=== PATIENT | female | born 1950 | race Caucasian/White ===

== ENCOUNTER → 2016-09-17 | Day surgery (SDC) | payer MEDICARE ==
[~2016-09-17] VITALS: Ht 157.5 cm; Wt 55.0 kg
[~2016-09-17] MED LIST: 0.9% Sodium Chloride 1,000 ML IV SCH; AMLO5TAB2 PO; ATEN50TA PO; CYCL1DRO OP; ESTR1VAG VG; LISI40TA PO; Sodium Chloride LOK Flush 10 mL Syringe IV PRN; fentaNYL-PF 50 mCg/mL 2 mL Inj IVPUSH PRN
[2016-09-17 12:01] VITALS: BP 138/75; PULSE 45; RESP 14; O2SAT 99
[2016-09-17 13:01] VITALS: BP 108/68; PULSE 45; RESP 15; O2SAT 98
[2016-09-17 13:19] VITALS: BP 100/54; PULSE 45; RESP 16; O2SAT 99
[2016-09-17 13:38] VITALS: BP 127/67; PULSE 64; RESP 16; O2SAT 98
--- NOTE | 2016-09-17 13:59 | ENDO ---
[address] [address] ENDOSCOPY PROCEDURE PATIENT: ELBA WYATT : 1950 MR#: [id number] ADMIT: 09/17/2016 JOB ID: [id number] DATE OF SERVICE: 09/17/2016 PROCEDURE PERFORMED: Colonoscopy. INDICATIONS: Screening. ASA CLASSIFICATION: The patient's ASA classification is II. MALLAMPATI SCORE: Mallampati score is 2. MEDICATIONS: 1. Versed 4 mg. 2. Fentanyl 75 mcg. INSTRUMENT USED: [id number]. PREPARATION QUALITY: Good. PROCEDURE DETAILS: After informed consent was obtained, the patient was brought into the GI suite, where she was placed on oxygen via nasal cannula and monitored with continuous pulse oximeter, telemetry, and blood pressure monitoring. A time-out was performed. Then, she was placed in the left lateral decubitus position and medications were administered for sedation. Digital rectal exam was performed which was unremarkable. The colonoscope was then inserted into the rectum and advanced under direct visualization to the cecum, which was identified by the presence of the ileocecal valve and appendiceal orifice. Once the cecum was reached, the colonoscope was withdrawn back into the rectum, as the mucosa and lumen were examined. In the rectum, retroflexion was performed. Following retroflexion, remaining air in the rectum was suctioned, and procedure was completed. FINDINGS: Normal exam from rectum to cecum. IMPRESSION: Normal colonoscopy. RECOMMENDATIONS: Repeat colonoscopy in 10 years, sooner if symptoms dictate. COMPLICATIONS: None. ESTIMATED BLOOD LOSS: Zero.
== END | disposition home or self-care (01) ==
LOC: END 00:15
PROVIDERS: ATTEND Internal Medicine Gastroenterology
DX: Z12.11 Encounter for screening for malignant neoplasm of colon (principal); Z79.890 Hormone replacement therapy
CPT/HCPCS: G0121; G0500; J2250; J3010; J7030